=== PATIENT | male | born 1985 | race African-American/Black ===

== ENCOUNTER 2025-10-19 13:12 | Emergency (ER) | payer OTHER ==
[~2025-10-19] VITALS: Ht 172.7 cm; Wt 87.4 kg
[2025-10-19 15:12] VITALS: BP 129/85; TEMP 97; O2SAT 100
== END 2025-10-19 15:15 | disposition home or self-care (01) ==
LOC: M ED 13:12
DX: M54.9 Dorsalgia, unspecified (principal); T14.8XXA Other injury of unspecified body region, initial encounter; M25.561 Pain in right knee; V49.40XA Driver injured in collision with unspecified motor vehicles in traffic accident, initial encounter; Y92.410 Unspecified street and highway as the place of occurrence of the external cause; Y93.9 Activity, unspecified; Y99.9 Unspecified external cause status